=== PATIENT | male | born 1950 | race Caucasian/White ===

== ENCOUNTER 2016-10-04 14:28 | Emergency (ER) | payer BC, MEDICARE, OTHER ==
--- NOTE | 2016-10-04 14:33 | EDM.PDOC ---
ED HPI GENERAL MEDICAL PROBLEM - General Chief Complaint: Neurological Problem Stated Complaint: IN BY AMBULANCE Time Seen by Provider: 10/04/16 14:32 Source of Information: Reports: Patient, Family (), Old Records, RN, RN Notes Reviewed History Limitations: Reports: Altered Mental Status - History of Present Illness INITIAL COMMENTS - FREE TEXT/NARRATIVE: Arrives from home by ambulance with reporting that he was out of town yesterday and returned home today after a fishing trip. He came home and laid down to rest, then the found him to be weak, drowsy, and confused. She checked his medication and states that it appears he took everything except for one dose, she just can't tell if the missed dose was today or yesterday. The pt is not able to provide any reliable history. Pt has Hx of hepatic encephalopathy , alcohol abuse, aspiration pneumonia, CHF, and pulm. HTN. states that when she first got home pt took some medicine and choked on it and coughed, then 2 pills "shot out" of his nose. Unknown if any fever or chills, but none that the has been aware of. Onset: Unknown/Unsure Duration: Constant Location: Reports: Generalized Severity: Severe Improves with: Reports: None Worsens with: Reports: None Context: Denies: Activity, Exercise, Lifting, Sick Contact, Trauma - Related Data Allergies Allergy/AdvReac Type Severity Reaction Status Date / Time duloxetine HCl Allergy Nausea Verified 01/26/16 13:34 [From Cymbalta] phenylbutazone Allergy Edema Verified 01/26/16 13:34 [From Butazolidin] Home Meds: Home Meds Finasteride [Proscar] 5 mg PO DAILY 08/10/15 [History] Insulin Glarg,Human.Rec.Analog [LantUS Solostar] 25 units SQ DAILY 08/10/15 [ History] Pregabalin [Lyrica] 300 mg PO BID 08/10/15 [History] Tamsulosin [Flomax] 0.4 mg PO DAILY 08/10/15 [History] glipiZIDE [Glipizide] 5 mg PO DAILY 08/10/15 [History] metFORMIN [Glucophage XR] 500 mg PO BIDMEALS 08/10/15 [History] Bumetanide 2 mg PO BID #0 01/27/16 [Rx] Spironolactone [Aldactone] 100 mg PO DAILY tablet 01/27/16 [Rx] Past Medical History HEENT History: Reports: Impaired Vision Cardiovascular History: Reports: Hypertension, PVD Respiratory History: Reports: COPD (untreated) Other Respiratory History: pulmonary hypertension Other Gastrointestinal History: hepatitis C, treated Genitourinary History: Reports: BPH Musculoskeletal History: Reports: None Neurological History: Reports: Neuropathy, Diabetic Psychiatric History: Reports: None Endocrine/Metabolic History: Reports: Diabetes, Type II, IDDM Hematologic History: Reports: None Immunologic History: Reports: None Oncologic (Cancer) History: Reports: None Dermatologic History: Reports: None - Infectious Disease History Infectious Disease History: Reports: Hepatitis C - Past Surgical History Respiratory Surgical History: Reports: Other (See Below) Social & Family History - Family History Family Medical History: Noncontributory - Tobacco Use Smoking Status *Q: Current Some Day Smoker Tobacco Use Within Last Twelve Months: Cigarettes Years of Tobacco use: 40 Packs/Tins Daily: 0.5 Used Tobacco, but Quit: Yes Month Tobacco Last Used: 03/05/2010 Second Hand Smoke Exposure: No - Caffeine Use Caffeine Use: Reports: Coffee - Alcohol Use Alcohol Use History: Yes Days Per Week of Alcohol Use: 7 Number of Drinks Per Day: 10 (3-10) Total Drinks Per Week: 70 Alcohol Use Frequency: Binges (long Hx of abuse, "closet drinker", doesn't drink in front of /family.) - Recreational Drug Use Recreational Drug Use: No - Living Situation & Occupation Living situation: Reports: , with Spouse Occupation: Disabled ED ROS GENERAL - Review of Systems Review Of Systems: Unable To Obtain (due to altered mental status) ED EXAM, GENERAL - Physical Exam Exam: See Below Exam Limited By: Altered Mental Status General Appearance: No Apparent Distress, Lethargic (arouses to voice stimuli), Other (chronically ill appearing) Eye Exam: Bilateral Eye: EOMI, PERRL, Other (faint tinge of scleral icterus) Ears: Hearing Grossly Normal Nose: Normal Inspection, Normal Mucosa, No Blood Throat/Mouth: Normal Inspection, Normal Oropharynx, Normal Voice, No Airway Compromise Head: Atraumatic, Normocephalic Neck: Normal Inspection, Supple, Non-Tender, Full Range of Motion Respiratory/Chest: No Respiratory Distress, No Accessory Muscle Use, Decreased Breath Sounds, Crackles Cardiovascular: Regular Rate, Rhythm, No Edema Peripheral Pulses: 0: Posterior Tibial (L), Posterior Tibial (R), 1+: Dorsalis Pedis (L), Dorsalis Pedis (R), 3+: Radial (L), Radial (R) GI/Abdominal: Normal Bowel Sounds, Soft, Non-Tender, No Abnormal Bruit, Other ( obese/protruberant abdomen). No: Guarding, Rigid, Rebound (Male) Exam: Deferred Rectal (Males) Exam: Deferred Back Exam: Normal Inspection Extremities: Normal Range of Motion, Non-Tender, No Pedal Edema, Other (severe chronic venous statis changes) Neurological: Oriented (to person and place), Slow to Respond, Other (slightly confused, follows commands, no obvious motor/sensory deficits.) Skin Exam: Warm, Dry, Intact EKG INTERPRETATION EKG Date: 10/04/16 Time: 15:28 Rhythm: Other (sinus rhythm.) Rate (Beats/Min): 97 [place]: Normal P-Wave: Present (probable left atrial enlargement) QRS: RBBB (and LPFB) ST-T: Depressed (inferior and lateral leads, unchanged from prior.) QT: Normal DE/PQ Interval: prolonged Comparison: No Change (from 02/18/16.) Course - Vital Signs Last Recorded V/S: Last Vital Signs Temp 36.5 C 10/04/16 14:44 Pulse 81 10/04/16 14:44 Resp 20 10/04/16 14:44 BP 100/67 10/04/16 14:44 Pulse Ox 97 10/04/16 14:44 - Orders/Labs/Meds Orders: Active Orders 24 hr Category Date Time Status Blood Glucose Check, Bedside [RC] ONETIME Care 10/04/16 15:19 Active EKG 12 Lead [EKG Documentation Completion] [RC] STAT Care 10/04/16 14:47 Active Peripheral IV Care [RC] . DIRECTED Care 10/04/16 14:49 Active CULTURE BLOOD [BC] Stat Lab 10/04/16 15:05 Received CULTURE BLOOD [BC] Stat Lab 10/04/16 15:56 Received UA W/MICROSCOPIC [URIN] Stat Lab 10/04/16 15:54 Results Sodium Chloride 0.9% [Saline Flush] Med 10/04/16 14:48 Active 10 ml FLUSH ASDIRECTED PRN Blood Culture x2 Reflex Set [OM.PC] Stat Oth 10/04/16 14:48 Ordered Peripheral IV Insertion Adult [OM.PC] Stat Oth 10/04/16 14:47 Ordered Medication Orders Sodium Chloride (Saline Flush) 10 ml FLUSH ASDIRECTED PRN PRN Reason: Keep Vein Open Labs: Laboratory Tests 10/04/16 10/04/16 10/04/16 Range/Units 14:45 15:05 15:05 WBC 10.3 H (5.0-10.0) 10^3/uL RBC 5.37 (4.6-6.2) 10^6/uL Hgb 16.0 (14.0-18.0) g/dL Hct 47.8 (40.0-54.0) % MCV 89.0 (80-100) fL MCH 29.8 (27.0-34.0) pg MCHC 33.5 (33.0-35.0) g/dL Plt Count 103 L (150-450) 10^3/uL Neut % (Auto) 92.9 H (42.2-75.2) % Lymph % (Auto) 3.2 L (20.5-50.1) % [place] % (Auto) 3.8 (2-8) % Eos % (Auto) 0.0 L (1.0-3.0) % Baso % (Auto) 0.1 (0.0-1.0) % PT 12.0 (9.0-12.0) SEC INR 1.2 (0.9-1.2) APTT 31.2 (22.0-34.0) SEC ABG pH 7.49 H (7.35-7.45) ABG pCO2 28 L (35-45) mmHg ABG pO2 52 L (70-100) mmHg ABG HCO3 21.3 L (22-26) mmol/L ABG O2 Saturation 90 L (95-100) % ABG Base Excess -1 ((-2)-(+3)) mmol/L O2 Delivery Device Room air Sodium (135-145) mmol/L Potassium (3.6-5.0) mmol/L Chloride (101-111) mmol/L Carbon Dioxide (21.0-31.0) mmol/L Anion Gap BUN (7-18) mg/dL Creatinine (0.6-1.3) mg/dL Est Cr Clr Drug Dosing mL/min Estimated GFR (MDRD) BUN/Creatinine Ratio Glucose (74-105) mg/dL POC Glucose (70-105) mg/dl Lactic Acid (0.5-2.2) mmol/L Calcium (8.4-10.2) mg/dl Total Bilirubin (0.2-1.0) mg/dL AST (10-42) IU/L ALT (10-60) IU/L Alkaline Phosphatase (42-121) IU/L Ammonia (11-35) umol/L Creatine Kinase (26-174) IU/L Troponin I (0.00-0.02) ng/ml B-Natriuretic Peptide (0-100) pg/ml Total Protein (6.7-8.2) g/dl Albumin (3.2-5.5) g/dl Globulin Albumin/Globulin Ratio Amylase (28-100) U/L Lipase (22-51) U/L Urine Color (YELLOW) Urine Appearance (CLEAR) Urine pH (5.0-9.0) Ur Specific [place] (1.005-1.030) Urine Protein (NEGATIVE) Urine Glucose (UA) (NEGATIVE) Urine Ketones (NEGATIVE) Urine Occult Blood (NEGATIVE) Urine Nitrite (NEGATIVE) Urine Bilirubin (NEGATIVE) Urine Urobilinogen (0.2-1.0) mg/dL Ur Leukocyte Esterase (NEGATIVE) Urine Opiates Screen (NEGATIVE) Ur Oxycodone Screen (NEGATIVE) Urine Methadone Screen (NEGATIVE) Ur Barbiturates Screen (NEGATIVE) U Tricyclic Antidepress (NEGATIVE) Ur Phencyclidine Scrn (NEGATIVE) Ur Amphetamine Screen (NEGATIVE) U Methamphetamines Scrn (NEGATIVE) Urine MDMA Screen (NEGATIVE) U Benzodiazepines Scrn (NEGATIVE) Urine Cocaine Screen (NEGATIVE) U Marijuana (THC) Screen (NEGATIVE) Ethyl Alcohol mg/dL 10/04/16 10/04/16 10/04/16 Range/Units 15:05 15:05 15:05 WBC (5.0-10.0) 10^3/uL RBC (4.6-6.2) 10^6/uL Hgb (14.0-18.0) g/dL Hct (40.0-54.0) % MCV (80-100) fL MCH (27.0-34.0) pg MCHC (33.0-35.0) g/dL Plt Count (150-450) 10^3/uL Neut % (Auto) (42.2-75.2) % Lymph % (Auto) (20.5-50.1) % [place] % (Auto) (2-8) % Eos % (Auto) (1.0-3.0) % Baso % (Auto) (0.0-1.0) % PT (9.0-12.0) SEC INR (0.9-1.2) APTT (22.0-34.0) SEC ABG pH (7.35-7.45) ABG pCO2 (35-45) mmHg ABG pO2 (70-100) mmHg ABG HCO3 (22-26) mmol/L ABG O2 Saturation (95-100) % ABG Base Excess ((-2)-(+3)) mmol/L O2 Delivery Device Sodium 129 L (135-145) mmol/L Potassium 4.9 (3.6-5.0) mmol/L Chloride 93 L (101-111) mmol/L Carbon Dioxide 23.0 (21.0-31.0) mmol/L Anion Gap 17.9 BUN 33 H (7-18) mg/dL Creatinine 1.4 H (0.6-1.3) mg/dL Est Cr Clr Drug Dosing 59.45 mL/min Estimated GFR (MDRD) 51 BUN/Creatinine Ratio 23.57 Glucose 159 H (74-105) mg/dL POC Glucose (70-105) mg/dl Lactic Acid 1.7 (0.5-2.2) mmol/L Calcium 9.4 (8.4-10.2) mg/dl Total Bilirubin 1.8 H (0.2-1.0) mg/dL AST 30 (10-42) IU/L ALT 19 (10-60) IU/L Alkaline Phosphatase 94 (42-121) IU/L Ammonia 2 L (11-35) umol/L Creatine Kinase 72 (26-174) IU/L Troponin I 0.05 H* (0.00-0.02) ng/ml B-Natriuretic Peptide 736 H (0-100) pg/ml Total Protein 8.8 H (6.7-8.2) g/dl Albumin 4.1 (3.2-5.5) g/dl Globulin 4.7 Albumin/Globulin Ratio 0.87 Amylase 31 (28-100) U/L Lipase 22 (22-51) U/L Urine Color (YELLOW) Urine Appearance (CLEAR) Urine pH (5.0-9.0) Ur Specific [place] (1.005-1.030) Urine Protein (NEGATIVE) Urine Glucose (UA) (NEGATIVE) Urine Ketones (NEGATIVE) Urine Occult Blood (NEGATIVE) Urine Nitrite (NEGATIVE) Urine Bilirubin (NEGATIVE) Urine Urobilinogen (0.2-1.0) mg/dL Ur Leukocyte Esterase (NEGATIVE) Urine Opiates Screen (NEGATIVE) Ur Oxycodone Screen (NEGATIVE) Urine Methadone Screen (NEGATIVE) Ur Barbiturates Screen (NEGATIVE) U Tricyclic Antidepress (NEGATIVE) Ur Phencyclidine Scrn (NEGATIVE) Ur Amphetamine Screen (NEGATIVE) U Methamphetamines Scrn (NEGATIVE) Urine MDMA Screen (NEGATIVE) U Benzodiazepines Scrn (NEGATIVE) Urine Cocaine Screen (NEGATIVE) U Marijuana (THC) Screen (NEGATIVE) Ethyl Alcohol < 5 mg/dL 10/04/16 10/04/16 10/04/16 Range/Units 15:31 15:54 15:54 WBC (5.0-10.0) 10^3/uL RBC (4.6-6.2) 10^6/uL Hgb (14.0-18.0) g/dL Hct (40.0-54.0) % MCV (80-100) fL MCH (27.0-34.0) pg MCHC (33.0-35.0) g/dL Plt Count (150-450) 10^3/uL Neut % (Auto) (42.2-75.2) % Lymph % (Auto) (20.5-50.1) % [place] % (Auto) (2-8) % Eos % (Auto) (1.0-3.0) % Baso % (Auto) (0.0-1.0) % PT (9.0-12.0) SEC INR (0.9-1.2) APTT (22.0-34.0) SEC ABG pH (7.35-7.45) ABG pCO2 (35-45) mmHg ABG pO2 (70-100) mmHg ABG HCO3 (22-26) mmol/L ABG O2 Saturation (95-100) % ABG Base Excess ((-2)-(+3)) mmol/L O2 Delivery Device Sodium (135-145) mmol/L Potassium (3.6-5.0) mmol/L Chloride (101-111) mmol/L Carbon Dioxide (21.0-31.0) mmol/L Anion Gap BUN (7-18) mg/dL Creatinine (0.6-1.3) mg/dL Est Cr Clr Drug Dosing mL/min Estimated GFR (MDRD) BUN/Creatinine Ratio Glucose (74-105) mg/dL POC Glucose 161 H (70-105) mg/dl Lactic Acid (0.5-2.2) mmol/L Calcium (8.4-10.2) mg/dl Total Bilirubin (0.2-1.0) mg/dL AST (10-42) IU/L ALT (10-60) IU/L Alkaline Phosphatase (42-121) IU/L Ammonia (11-35) umol/L Creatine Kinase (26-174) IU/L Troponin I (0.00-0.02) ng/ml B-Natriuretic Peptide (0-100) pg/ml Total Protein (6.7-8.2) g/dl Albumin (3.2-5.5) g/dl Globulin Albumin/Globulin Ratio Amylase (28-100) U/L Lipase (22-51) U/L Urine Color Dark yellow (YELLOW) Urine Appearance Slightly cloudy (CLEAR) Urine pH 5.0 (5.0-9.0) Ur Specific [place] 1.010 (1.005-1.030) Urine Protein Trace H (NEGATIVE) Urine Glucose (UA) Negative (NEGATIVE) Urine Ketones Negative (NEGATIVE) Urine Occult Blood Moderate H (NEGATIVE) Urine Nitrite Positive H (NEGATIVE) Urine Bilirubin Negative (NEGATIVE) Urine Urobilinogen 0.2 (0.2-1.0) mg/dL Ur Leukocyte Esterase Moderate H (NEGATIVE) Urine Opiates Screen Negative (NEGATIVE) Ur Oxycodone Screen Positive H (NEGATIVE) Urine Methadone Screen Negative (NEGATIVE) Ur Barbiturates Screen Negative (NEGATIVE) U Tricyclic Antidepress Negative (NEGATIVE) Ur Phencyclidine Scrn Negative (NEGATIVE) Ur Amphetamine Screen Negative (NEGATIVE) U Methamphetamines Scrn Negative (NEGATIVE) Urine MDMA Screen Negative (NEGATIVE) U Benzodiazepines Scrn Positive H (NEGATIVE) Urine Cocaine Screen Negative (NEGATIVE) U Marijuana (THC) Screen Negative (NEGATIVE) Ethyl Alcohol mg/dL Meds: Medications Generic Name Dose Route Start Last Admin Trade Name Chetan PRN Reason Stop Dose Admin Sodium Chloride 10 ml 10/04/16 14:48 Saline Flush FLUSH ASDIRECTED PRN Keep Vein Open - Radiology Interpretation Free Text/Narrative:: Chest x-ray: Per rad report reveals no lunar mass, hilar lymphadenopathy or focal lobar pneumonia. No atelectasis/collapse. No pneumothorax. Cardiomegaly and generalized pulmonary venous congestion/cephalization with subtle blunting of the costophrenic sulcus. Head CT: Per rad report reveals chronic multi-infarct ischemic disease noted on previous exam February 18, 2016. No new signs of intracranial mass, hydrocephalus or bleed. Sinusitis. Departure - Departure Time of Disposition: 16:10 (Dr. Herrera) Disposition: Refer to Observation Condition: Serious Clinical Impression: Pulmonary hypertension, Alcoholic liver disease Altered mental status Qualifiers: Altered mental status type: somnolence Qualified Code(s): R40.0 - Somnolence Chronic CHF Qualifiers: Congestive heart failure type: unspecified congestive heart failure type Qualified Code(s): I50.9 - Heart failure, unspecified - Discharge Information - My Orders Last 24 Hours: My Active Orders 10/04/16 14:47 EKG 12 Lead [EKG Documentation Completion] [RC] STAT Peripheral IV Insertion Adult [OM.PC] Stat 10/04/16 14:48 Sodium Chloride 0.9% [Saline Flush] 10 ml FLUSH ASDIRECTED PRN Blood Culture x2 Reflex Set [OM.PC] Stat 10/04/16 14:49 Peripheral IV Care [RC] . DIRECTED 10/04/16 15:05 CULTURE BLOOD [BC] Stat 10/04/16 15:19 Blood Glucose Check, Bedside [RC] ONETIME 10/04/16 15:54 UA W/MICROSCOPIC [URIN] Stat 10/04/16 15:56 CULTURE BLOOD [BC] Stat - Assessment/Plan Last 24 Hours: My Active Orders 10/04/16 14:47 EKG 12 Lead [EKG Documentation Completion] [RC] STAT Peripheral IV Insertion Adult [OM.PC] Stat 10/04/16 14:48 Sodium Chloride 0.9% [Saline Flush] 10 ml FLUSH ASDIRECTED PRN Blood Culture x2 Reflex Set [OM.PC] Stat 10/04/16 14:49 Peripheral IV Care [] . DIRECTED 10/04/16 15:05 CULTURE BLOOD [] Stat 10/04/16 15:19 Blood Glucose Check, Bedside [] ONETIME 10/04/16 15:54 UA W/MICROSCOPIC [URIN] Stat 10/04/16 15:56 CULTURE BLOOD [] Stat
[2016-10-04] MEDS ORDERED: Sodium Chloride 0.9% 10 ML Syringe FLUSH PRN (14:48)
[2016-10-04 15:12] LABS: O2 DELIVERY DEVICE ROOM AIR
[2016-10-04 15:14] LABS: BASE EXCESS ARTERIAL -1 mmol/L ((-2)-(+3)); BICARBONATE,ARTERIAL 21.3 mmol/L (22-26); O2 SATURATION ARTERIAL 90 % (95-100); PCO2 ARTERIAL 28 mmHg (35-45); PO2 ARTERIAL 52 mmHg (70-100)
--- NOTE | 2016-10-04 15:30 | CR ---
Clinical history: 66-year-old male clinically suspected "aspiration". Interpretation: Left supra clavicular central venous line crosses the midline with the tip lying in the superior vena cava. Cardiomegaly and generalized pulmonary venous congestion/cephalization with subtle blunting of the c ostophrenic sulci. BNP? EKG? Clinical heart failure? No lung mass, hilar lymphadenopathy or focal lobar pneumonia. No atelectasis/collapse. No pneumothorax.
--- NOTE | 2016-10-04 15:39 | CT ---
Clinical history: 66-year-old 188 pound diabetic male altered mental status reported on CT scan 16 D ec 2016 have "questionable small infarct right occipital lobe". Scan technique: Volume acquisition of data emergency unenhanced CT scan of the head and brain obtain ed while the patient was lying supine on the Siemens multislice CT scanner [place], [place]. All data archived in the PACS system for storage, reformatting and study (fermin ne/brain windows). Interpretation: 1. Uniformly thick bony calvarium and symmetric clear pneumatization of the frontal, sphenoid and ma stoid sinuses (mucoperiosteal thickening of the ethmoid and maxillary sinuses, bilaterally). 2. Symmetric but severe cerebral cortical atrophy with underlying mirror-image prominence of the anup tricular system unchanged since previous exam 18 February 2016. 3. Extensive ischemic change (infarcts) involving the periventricular white matter both cerebral hem ispheres that was also present on earlier exam. Note: Encephalomalacia involving the occipital lobe posteriorly right cerebral hemisphere. 4. No new evidence of supratentorial/posterior fossa mass lesion or hydrocephalus. 5. No abnormal extracerebral/intracranial epidural or subdural hematoma. 6. No sign of acute intracerebral/intraventricular or subarachnoid bleed. CONCLUSION: Chronic multi-infarct ischemic disease noted on previous exam 18 February 2016 (unchange d). No new signs of intracranial mass, hydrocephalus or bleed. Sinusitis.
[2016-10-04 15:40] LABS: CHLORIDE,CL 93 mmol/L (101-111); SODIUM,NA 129 mmol/L (135-145)
[2016-10-04 16:34] VITALS: BP 115/63
--- NOTE | 2016-10-10 10:08 | EKG ---
10/04/2016- IRVING GALLOWAY - EKG per my reading shows sinus rhythm with diffuse inferolateral T-wave inversion. MOD /[id number]
== END 2016-10-04 17:26 ==
LOC: DL.ED 14:28 → UNDOADMOB 16:04 → DL.MS 16:04 → DL.ED 17:26
DX: I27.2 Other secondary pulmonary hypertension (principal); K70.9 Alcoholic liver disease, unspecified; R40.0 Somnolence; I50.9 Heart failure, unspecified; I73.9 Peripheral vascular disease, unspecified; J44.9 Chronic obstructive pulmonary disease, unspecified; E11.40 Type 2 diabetes mellitus with diabetic neuropathy, unspecified; F17.210 Nicotine dependence, cigarettes, uncomplicated; Z79.4 Long term (current) use of insulin; Z79.84 Long term (current) use of oral hypoglycemic drugs; Z79.899 Other long term (current) drug therapy; Z88.8 Allergy status to other drugs, medicaments and biological substances
CPT/HCPCS: 36415; 36600; 70450; 71010; 80053; 80305; 81001; 82140; 82150; 82550; 82803; 82962; 83605; 83690; 83880; 84484; 85025; 85610; 85730; 87040; 93005; 93010; 99285; G0480; 87077; 87186

== ENCOUNTER 2016-11-22 16:58 | Emergency (ER) | payer OTHER, BC ==
[~2016-11-22 16:58] MED LIST: Ondansetron 4 MG/2 ML SDV IV ONE
[2016-11-22 17:05] VITALS: BP 107/68
--- NOTE | 2016-11-22 17:26 | EDM.PDOC ---
ED HPI GENERAL MEDICAL PROBLEM - General Chief Complaint: Neuro Symptoms/Deficits Stated Complaint: COMING BY AMBULANCE, WEAKNESS Time Seen by Provider: 11/22/16 17:00 Source of Information: Reports: Patient, EMS, Family History Limitations: Reports: No Limitations - History of Present Illness INITIAL COMMENTS - FREE TEXT/NARRATIVE: This 66 yo male patient was brought to the ED by [facility] due to increased confusion and reduced mobility. The patient reports he is currently feeling "normal", but his family believes he is more confused and has not been moving around as normal. The patient reports he has not been eating well over the past couple of days. The patient reports his abdomen looks normal. The patient has been having nausea, vomiting and diarrhea over the past 24 hours. The family also reports the patient was not coherent for the whole day until he was told that he was going to the hospital. The patient was transferred from [place] to [facility] about 1 month ago for similar symptoms. After 2 days in [facility] ([place]), the patient was transferred to [facility] for continued evaluation. The patient has a history of Pulmonary HTN, Hepatic Encephalopathy, CHF, Aspiration Pneumonia, ETOH abuse and NIDDM. The patient denies any drug or ETOH use. Onset: Today Duration: Constant, Getting Worse Location: Reports: Generalized Quality: Reports: Other Severity: Moderate Improves with: Reports: None Worsens with: Reports: None Associated Symptoms: Reports: Nausea/Vomiting, Other (diarrhea) - Related Data Allergies Allergy/AdvReac Type Severity Reaction Status Date / Time duloxetine HCl Allergy Nausea Verified 11/22/16 17:11 [From Cymbalta] phenylbutazone Allergy Edema Verified 11/22/16 17:11 [From Butazolidin] Home Meds: Home Meds Finasteride [Proscar] 5 mg PO DAILY 08/10/15 [History] Pregabalin [Lyrica] 300 mg PO BID 08/10/15 [History] Tamsulosin [Flomax] 0.4 mg PO BID 08/10/15 [History] glipiZIDE [Glipizide] 2.5 mg PO BID 08/10/15 [History] metFORMIN [Glucophage XR] 500 mg PO DAILY 08/10/15 [History] Bumetanide 2 mg PO BID #0 01/27/16 [Rx] Allopurinol [Zyloprim] 100 mg PO DAILY 10/04/16 [History] Ascorbic Acid [Vitamin C] 100 mg PO DAILY 10/04/16 [History] Folic Acid 1 mg PO DAILY 10/04/16 [History] Pantoprazole Sodium [Protonix] 40 mg PO DAILY 10/04/16 [History] Potassium Chloride [Klor-Con] 20 meq PO DAILY 10/04/16 [History] Riociguat [Adempas] 0.5 mg 10/04/16 [History] Spironolactone [Aldactone] 25 mg PO TID 10/04/16 [History] Temazepam 30 mg PO BEDTIME 10/04/16 [History] oxyCODONE 5 mg PO BID 10/04/16 [History] Treprostinil Sodium [Remodulin] 2.4 mg IJ 11/22/16 [History] Past Medical History HEENT History: Reports: Impaired Vision Cardiovascular History: Reports: Hypertension, PVD Respiratory History: Reports: COPD (untreated) Other Respiratory History: pulmonary hypertension Other Gastrointestinal History: hepatitis C, treated Genitourinary History: Reports: BPH Musculoskeletal History: Reports: None Neurological History: Reports: Neuropathy, Diabetic Psychiatric History: Reports: None Endocrine/Metabolic History: Reports: Diabetes, Type II, IDDM Hematologic History: Reports: None Immunologic History: Reports: None Oncologic (Cancer) History: Reports: None Dermatologic History: Reports: None - Infectious Disease History Infectious Disease History: Reports: Hepatitis C - Past Surgical History Respiratory Surgical History: Reports: Other (See Below) Social & Family History - Family History Family Medical History: Noncontributory - Tobacco Use Smoking Status *Q: Current Some Day Smoker Years of Tobacco use: 40 Packs/Tins Daily: 0.5 Used Tobacco, but Quit: Yes Month Tobacco Last Used: 03/05/2010 Second Hand Smoke Exposure: No - Caffeine Use Caffeine Use: Reports: Coffee - Alcohol Use Days Per Week of Alcohol Use: 7 Number of Drinks Per Day: 10 (3-10) Total Drinks Per Week: 70 - Recreational Drug Use Recreational Drug Use: No - Living Situation & Occupation Living situation: Reports: , with Spouse Occupation: Disabled ED ROS GENERAL - Review of Systems Review Of Systems: ROS reveals no pertinent complaints other than HPI. ED EXAM, NEURO - Physical Exam Exam: See Below Exam Limited By: No Limitations General Appearance: Alert, WD/WN, Moderate Distress Eye Exam: Bilateral Eye: EOMI, Normal Inspection, PERRL Ears: Normal External Exam, Normal Canal, Hearing Grossly Normal, Normal TMs Nose: Normal Inspection, Normal Mucosa, No Blood Throat/Mouth: Normal Inspection, Normal Lips, Normal Teeth, Normal Gums, Normal Oropharynx, Normal Voice, No Airway Compromise Head Exam: Atraumatic, Normocephalic Neck: Normal Inspection, Supple, Non-Tender, Full Range of Motion Respiratory/Chest: No Respiratory Distress, Lungs Clear, Normal Breath Sounds, No Accessory Muscle Use, Chest Non-Tender Cardiovascular: Normal Peripheral Pulses, Regular Rate, Rhythm, No Edema, No Gallop, No JVD, No Murmur, No Rub GI/Abdominal: Normal Bowel Sounds, Non-Tender, Distended (Male) Exam: Deferred Rectal (Males) Exam: Deferred Neurological: Alert, Normal Mood/Affect, Normal Dorsiflexion, CN II-XII Intact, Normal Plantar Flexion, Normal Gait, Normal Reflexes, No Motor/Sensory Deficits , Oriented x 3 Back Exam: Normal Inspection Extremities: Normal Inspection, Normal Range of Motion, Non-Tender, No Pedal Edema, Normal Capillary Refill Psychiatric: Normal Affect, Normal Mood Skin Exam: Warm, Dry, Intact, Normal Color, No Rash Course - Vital Signs Last Recorded V/S: Last Vital Signs Temp 36.8 C 11/22/16 17:00 Pulse 91 11/22/16 17:00 Resp 20 11/22/16 17:00 BP 107/68 11/22/16 17:00 Pulse Ox 96 11/22/16 17:00 - Orders/Labs/Meds Orders: Active Orders 24 hr Category Date Time Status EKG Documentation Completion [RC] URGENT Care 11/22/16 16:40 Active CULTURE BLOOD [BC] Stat Lab 11/22/16 17:00 Received CULTURE BLOOD [BC] Stat Lab 11/22/16 17:23 Received DRUG SCREEN URINE BIORAD [URCHEM] Stat Lab 11/22/16 17:44 Ordered UA W/MICROSCOPIC [URIN] Stat Lab 11/22/16 17:44 Ordered Blood Culture x2 Reflex Set [OM.PC] Stat Oth 11/22/16 16:41 Ordered Labs: Laboratory Tests 11/22/16 11/22/16 11/22/16 Range/Units 17:00 17:00 17:00 WBC 6.5 (5.0-10.0) 10^3/uL RBC 5.54 (4.6-6.2) 10^6/uL Hgb 16.4 (14.0-18.0) g/dL Hct 48.9 (40.0-54.0) % MCV 88.3 (80-100) fL MCH 29.6 (27.0-34.0) pg MCHC 33.5 (33.0-35.0) g/dL Plt Count 163 (150-450) 10^3/uL Neut % (Auto) 79.9 H (42.2-75.2) % Lymph % (Auto) 8.3 L (20.5-50.1) % [place] % (Auto) 11.4 H (2-8) % Eos % (Auto) 0.2 L (1.0-3.0) % Baso % (Auto) 0.2 (0.0-1.0) % Sodium 133 L (135-145) mmol/L Potassium 4.4 (3.6-5.0) mmol/L Chloride 93 L (101-111) mmol/L Carbon Dioxide 23.0 (21.0-31.0) mmol/L Anion Gap 21.4 BUN 50 H (7-18) mg/dL Creatinine 2.3 H (0.6-1.3) mg/dL Est Cr Clr Drug Dosing 36.19 mL/min Estimated GFR (MDRD) 29 BUN/Creatinine Ratio 21.73 Glucose 222 H (74-105) mg/dL Lactic Acid (0.5-2.2) mmol/L Calcium 9.3 (8.4-10.2) mg/dl Magnesium 1.5 L (1.8-2.5) mg/dL Total Bilirubin 1.5 H (0.2-1.0) mg/dL AST 38 (10-42) IU/L ALT 20 (10-60) IU/L Alkaline Phosphatase 94 (42-121) IU/L Ammonia 2 L (11-35) umol/L Troponin I 0.04 H* (0.00-0.02) ng/ml B-Natriuretic Peptide 236 H (0-100) pg/ml Total Protein 9.2 H (6.7-8.2) g/dl Albumin 4.2 (3.2-5.5) g/dl Globulin 5.0 Albumin/Globulin Ratio 0.84 Ethyl Alcohol < 5 mg/dL 11/22/16 Range/Units 17:00 WBC (5.0-10.0) 10^3/uL RBC (4.6-6.2) 10^6/uL Hgb (14.0-18.0) g/dL Hct (40.0-54.0) % MCV (80-100) fL MCH (27.0-34.0) pg MCHC (33.0-35.0) g/dL Plt Count (150-450) 10^3/uL Neut % (Auto) (42.2-75.2) % Lymph % (Auto) (20.5-50.1) % [place] % (Auto) (2-8) % Eos % (Auto) (1.0-3.0) % Baso % (Auto) (0.0-1.0) % Sodium (135-145) mmol/L Potassium (3.6-5.0) mmol/L Chloride (101-111) mmol/L Carbon Dioxide (21.0-31.0) mmol/L Anion Gap BUN (7-18) mg/dL Creatinine (0.6-1.3) mg/dL Est Cr Clr Drug Dosing mL/min Estimated GFR (MDRD) BUN/Creatinine Ratio Glucose (74-105) mg/dL Lactic Acid 2.9 H (0.5-2.2) mmol/L Calcium (8.4-10.2) mg/dl Magnesium (1.8-2.5) mg/dL Total Bilirubin (0.2-1.0) mg/dL AST (10-42) IU/L ALT (10-60) IU/L Alkaline Phosphatase (42-121) IU/L Ammonia (11-35) umol/L Troponin I (0.00-0.02) ng/ml B-Natriuretic Peptide (0-100) pg/ml Total Protein (6.7-8.2) g/dl Albumin (3.2-5.5) g/dl Globulin Albumin/Globulin Ratio Ethyl Alcohol mg/dL Meds: Medications Discontinued Medications Generic Name Dose Route Start Last Admin Trade Name Freq PRN Reason Stop Dose Admin Ondansetron HCl 4 mg 11/22/16 16:55 11/22/16 17:00 Zofran IV 11/22/16 16:56 4 mg ONETIME ONE Administration - Re-Assessments/Exams Free Text/Narrative Re-Assessment/Exam: 11/22/16 17:48 The patient was advised of the examination, EKG and CT results during the visit. The patient was given a 500 mL bolus of normal saline and IV Zofran while in the ED. Departure - Departure Time of Disposition: 17:59 Disposition: Home, Self-Care 01 Condition: Fair Clinical Impression: Gastroenteritis - Discharge Information Instructions: Gastritis, Adult, [id number] Forms: ED Department Discharge Care Plan Goals: The patient and family were advised of the examination, lab, EKG and CT results during the visit. The patient was given a saline bolus and a dose of IV Zofran while in the ED. The patient was discharged with a script for Zofran (4 mg) #20 to take 1 by mouth every 6 hours as needed for nausea. If the patient has any additional symptoms or further concerns, the patient should follow-up with his primary care facility or return to the emergency department. - My Orders Last 24 Hours: My Active Orders 11/22/16 16:40 EKG Documentation Completion [RC] URGENT 11/22/16 16:41 Blood Culture x2 Reflex Set [OM.PC] Stat 11/22/16 17:00 CULTURE BLOOD [BC] Stat 11/22/16 17:23 CULTURE BLOOD [BC] Stat 11/22/16 17:44 DRUG SCREEN URINE BIORAD [URCHEM] Stat UA W/MICROSCOPIC [URIN] Stat - Assessment/Plan Last 24 Hours: My Active Orders 11/22/16 16:40 EKG Documentation Completion [RC] URGENT 11/22/16 16:41 Blood Culture x2 Reflex Set [OM.PC] Stat 11/22/16 17:00 CULTURE BLOOD [BC] Stat 11/22/16 17:23 CULTURE BLOOD [BC] Stat 11/22/16 17:44 DRUG SCREEN URINE BIORAD [URCHEM] Stat UA W/MICROSCOPIC [URIN] Stat
[2016-11-22 17:28] LABS: CHLORIDE,CL 93 mmol/L (101-111); SODIUM,NA 133 mmol/L (135-145)
--- NOTE | 2016-11-23 14:22 | EKG ---
11/22/2016 - IRVING GALLOWAY I reviewed the EKG and agree with the machine's reading. [facility] /[id number]
== END 2016-11-22 18:50 | disposition home or self-care (01) ==
LOC: DL.ED 16:58
DX: K52.9 Noninfective gastroenteritis and colitis, unspecified (principal); I10 Essential (primary) hypertension; E11.40 Type 2 diabetes mellitus with diabetic neuropathy, unspecified; J44.9 Chronic obstructive pulmonary disease, unspecified; F17.210 Nicotine dependence, cigarettes, uncomplicated; Z88.8 Allergy status to other drugs, medicaments and biological substances
CPT/HCPCS: 36415; 70450; 80053; 80305; 81001; 82140; 83605; 83735; 83880; 84484; 85025; 87040; 93005; 93010; 96374; 99285; G0480; J2405

== ENCOUNTER 2017-08-26 20:24 | Emergency (ER) | payer OTHER, BC ==
[2017-08-26 21:07] LABS: CHLORIDE,CL 85 mmol/L (101-111); SODIUM,NA 123 mmol/L (135-145)
--- NOTE | 2017-08-26 21:12 | EDM.PDOC ---
ED HPI GENERAL MEDICAL PROBLEM - General Chief Complaint: Respiratory Problem Time Seen by Provider: 08/26/17 21:08 Source of Information: Reports: Patient, Family History Limitations: Reports: No Limitations - History of Present Illness INITIAL COMMENTS - FREE TEXT/NARRATIVE: c/o progressive worsening sob past 3 days chest tightness leg swelling weakness. h/o abd tap for ascites last on few weeks ago [facility] [place] [facility] color [facility] is at. Bilateral Feet Pain Score (Numeric/FACES): 6 Abdomen Pain Score (Numeric/FACES): 6 - Related Data Allergies Allergy/AdvReac Type Severity Reaction Status Date / Time duloxetine HCl Allergy Nausea Verified 11/23/16 15:55 MDT [From Cymbalta] phenylbutazone Allergy Edema Verified 11/23/16 15:55 MDT [From Butazolidin] Home Meds: Home Meds Finasteride [Proscar] 5 mg PO DAILY 08/10/15 [History] Pregabalin [Lyrica] 300 mg PO BID 08/10/15 [History] Tamsulosin [Flomax] 0.4 mg PO BID 08/10/15 [History] glipiZIDE [Glipizide] 5 mg PO BID 08/10/15 [History] Allopurinol [Zyloprim] 100 mg PO BID 10/04/16 [History] Folic Acid 1 mg PO DAILY 10/04/16 [History] Pantoprazole Sodium [Protonix] 40 mg PO DAILY 10/04/16 [History] Potassium Chloride [Klor-Con] 40 meq PO DAILY 10/04/16 [History] Riociguat [Adempas] 1.5 mg PO TID 10/04/16 [History] Spironolactone [Aldactone] 50 mg PO BID 10/04/16 [History] Temazepam 30 mg PO BEDTIME 10/04/16 [History] oxyCODONE 5 mg PO Q4H PRN 10/04/16 [History] Treprostinil Sodium [Remodulin] 77.5 ng ICATH DAILY 11/22/16 [History] Albuterol/Ipratropium [DuoNeb 3.0-0.5 MG/3 ML] 1 ampule INH Q6H PRN 08/26/17 [ History] Budesonide/Formoterol Fumarate [Symbicort 160-4.5 Mcg Inhaler] 2 puff IH BID [History] Bumetanide 4 mg PO BID 08/26/17 [History] Docusate Sodium [Colace] 100 mg PO DAILY 08/26/17 [History] Lactulose 15 ml PO DAILY 08/26/17 [History] Magnesium Oxide 800 mg PO DAILY 08/26/17 [History] Metolazone 5 mg PO DAILY 08/26/17 [History] Past Medical History HEENT History: Reports: Impaired Vision Cardiovascular History: Reports: Hypertension, Pulmonary Hypertension, PVD Respiratory History: Reports: COPD Other Respiratory History: pulmonary hypertension Gastrointestinal History: Reports: Other (See Below) Other Gastrointestinal History: hepatitis C, treated Genitourinary History: Reports: BPH Musculoskeletal History: Reports: None Neurological History: Reports: Neuropathy, Diabetic Other Neuro History: 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 Psychiatric History: Reports: None Endocrine/Metabolic History: Reports: Diabetes, Type II, IDDM Hematologic History: Reports: None Immunologic History: Reports: None Oncologic (Cancer) History: Reports: None Dermatologic History: Reports: None - Infectious Disease History Infectious Disease History: Reports: Hepatitis C - Past Surgical History Head Surgeries/Procedures: Reports: None Respiratory Surgical History: Reports: Other (See Below) Social & Family History - Family History Family Medical History: Noncontributory - Caffeine Use Caffeine Use: Reports: Coffee, Soda - Living Situation & Occupation Living situation: Reports: , with Spouse Occupation: Disabled ED ROS GENERAL - Review of Systems Review Of Systems: ROS reveals no pertinent complaints other than HPI. ED EXAM, GENERAL - Physical Exam Exam: See Below Exam Limited By: No Limitations General Appearance: Alert, WD/WN, Mild Distress, Other (sob) Ears: Hearing Grossly Normal Throat/Mouth: Normal Voice, No Airway Compromise Head: Atraumatic Neck: Non-Tender, Full Range of Motion Respiratory/Chest: No Accessory Muscle Use, Decreased Breath Sounds, Rhonchi. No: Retractions Cardiovascular: Regular Rate, Rhythm GI/Abdominal: Distended, Other (ascites) Extremities: Pedal Edema, Other (3+ bilateral) Neurological: Alert, Oriented, Normal Cognition, No Motor/Sensory Deficits Psychiatric: Flat Affect Course - Vital Signs Last Recorded V/S: Last Vital Signs Temp 37.2 C 08/26/17 20:28 Pulse 101 H 06/24/18 21:45 Resp 17 08/26/17 21:45 BP 89/66 L 08/26/17 21:45 Pulse Ox 93 L 08/26/17 21:45 - Orders/Labs/Meds Labs: Laboratory Tests 08/26/17 08/26/17 08/26/17 Range/Units 20:40 20:40 20:40 WBC 6.8 (5.0-10.0) 10^3/uL RBC 5.24 (4.6-6.2) 10^6/uL Hgb 14.1 D (14.0-18.0) g/dL Hct 40.9 (40.0-54.0) % MCV 78.1 L D (80-100) fL MCH 26.9 L (27.0-34.0) pg MCHC 34.5 (33.0-35.0) g/dL Plt Count 83 L D (150-450) 10^3/uL Neut % (Auto) 77.8 H (42.2-75.2) % Lymph % (Auto) 12.4 L (20.5-50.1) % [place] % (Auto) 7.8 (2-8) % Eos % (Auto) 1.3 (1.0-3.0) % Baso % (Auto) 0.6 (0.0-1.0) % Add Manual Diff Yes Neutrophils % (Manual) 81 H (42-75) % Lymphocytes % (Manual) 11 L (20-50) % Monocytes % (Manual) 7 (2-8) % Eosinophils % (Manual) 1 (1-3) % Sodium 123 L D (135-145) mmol/L Potassium 4.7 (3.6-5.0) mmol/L Chloride 85 L (101-111) mmol/L Carbon Dioxide 25.0 (21.0-31.0) mmol/L Anion Gap 17.7 BUN 98 H D (7-18) mg/dL Creatinine 3.5 H D (0.6-1.3) mg/dL Est Cr Clr Drug Dosing TNP Estimated GFR (MDRD) 18 BUN/Creatinine Ratio 28.00 Glucose 116 H (74-105) mg/dL Lactic Acid (0.5-2.2) mmol/L Calcium 8.6 (8.4-10.2) mg/dl Total Bilirubin 1.2 H (0.2-1.0) mg/dL AST 23 (10-42) IU/L ALT 15 (10-60) IU/L Alkaline Phosphatase 124 H (42-121) IU/L Ammonia 12 (11-35) umol/L Troponin I (0.00-0.02) ng/ml B-Natriuretic Peptide (0-100) pg/ml Total Protein 7.9 (6.7-8.2) g/dl Albumin 3.6 (3.2-5.5) g/dl Globulin 4.3 Albumin/Globulin Ratio 0.84 08/26/17 08/26/17 Range/Units 20:40 20:40 WBC (5.0-10.0) 10^3/uL RBC (4.6-6.2) 10^6/uL Hgb (14.0-18.0) g/dL Hct (40.0-54.0) % MCV (80-100) fL MCH (27.0-34.0) pg MCHC (33.0-35.0) g/dL Plt Count (150-450) 10^3/uL Neut % (Auto) (42.2-75.2) % Lymph % (Auto) (20.5-50.1) % [place] % (Auto) (2-8) % Eos % (Auto) (1.0-3.0) % Baso % (Auto) (0.0-1.0) % Add Manual Diff Neutrophils % (Manual) (42-75) % Lymphocytes % (Manual) (20-50) % Monocytes % (Manual) (2-8) % Eosinophils % (Manual) (1-3) % Sodium (135-145) mmol/L Potassium (3.6-5.0) mmol/L Chloride (101-111) mmol/L Carbon Dioxide (21.0-31.0) mmol/L Anion Gap BUN (7-18) mg/dL Creatinine (0.6-1.3) mg/dL Est Cr Clr Drug Dosing Estimated GFR (MDRD) BUN/Creatinine Ratio Glucose (74-105) mg/dL Lactic Acid 0.9 (0.5-2.2) mmol/L Calcium (8.4-10.2) mg/dl Total Bilirubin (0.2-1.0) mg/dL AST (10-42) IU/L ALT (10-60) IU/L Alkaline Phosphatase (42-121) IU/L Ammonia (11-35) umol/L Troponin I 0.04 H* (0.00-0.02) ng/ml B-Natriuretic Peptide 200 H (0-100) pg/ml Total Protein (6.7-8.2) g/dl Albumin (3.2-5.5) g/dl Globulin Albumin/Globulin Ratio - Re-Assessments/Exams Free Text/Narrative Re-Assessment/Exam: 08/26/17 22:[address] Hansen @ who kindly accept pt Departure - Departure Time of Disposition: 22:18 Disposition: DC/Tfer to Acute Hospital 02 Condition: Poor Clinical Impression: Ascites due to alcoholic cirrhosis Renal failure Qualifiers: Renal failure chronicity: chronic Chronic kidney disease stage: stage 5, not on chronic dialysis Qualified Code(s): N18.5 - Chronic kidney disease, stage 5 - Discharge Information Forms: Interfacility Transfer [facility]
[2017-08-26 22:26] VITALS: BP 84/54
== END 2017-08-26 22:49 ==
LOC: DL.ED 20:24
DX: K70.31 Alcoholic cirrhosis of liver with ascites (principal); I12.0 Hypertensive chronic kidney disease with stage 5 chronic kidney disease or end stage renal disease; N18.5 Chronic kidney disease, stage 5; E11.22 Type 2 diabetes mellitus with diabetic chronic kidney disease; E11.40 Type 2 diabetes mellitus with diabetic neuropathy, unspecified; J44.9 Chronic obstructive pulmonary disease, unspecified; Z88.8 Allergy status to other drugs, medicaments and biological substances; Z79.899 Other long term (current) drug therapy
CPT/HCPCS: 36415; 71045; 80053; 82140; 83605; 83880; 84484; 85025; 99285

== ENCOUNTER 2017-09-14 10:05 | Day surgery (SDC) | payer OTHER ==
[2017-09-14] MEDS ORDERED: Lidocaine 1% 30 ML SDV ONE (10:40)
[2017-09-14 10:44] VITALS: BP 81/44
[2017-09-14] MEDS ORDERED: Lidocaine 1% 30 ML SDV INJECT ONE ×2 (11:09→11:12)
--- NOTE | 2017-09-17 08:51 | CN ---
SERVICE DATE: 09/14/2017 INTRODUCTION: This 66-year-old male presents to my Surgery Clinic for evaluation of massive abdominal ascites. He is a [facility] patient here and does travel to [facility] in [place] to have the ascites intermittently tapped. He, however, was just tapped last week and would rather not make this same long trip. I have the ability to drain the ascites here and make him comfortable. He is a palliative care patient and this would be for comfort measures to help him breathe better. The risks, benefits, and expected outcomes of a drainage procedure were discussed with him and he wishes to proceed. PHYSICAL EXAMINATION: Shows a clear heart and lungs. The abdomen is markedly distended and tense and this is due to end-stage liver disease or cirrhosis that causes his ascites. PROCEDURE IN DETAIL: After adequate preparation, the left side of the abdomen was prepped and draped sterilely. A 1% Xylocaine was used to infiltrate an area around the skin and the muscle layer. A Veress needle was placed within the abdomen and then a 5 mm trocar was introduced over the sheath into the abdomen. This was then hooked up to an IV extension tubing and the stopcock was opened. This was able to drain 3 L of ascites looking material. The patient seemed to tolerate this well. He still has at least that much left in the abdomen and I did discuss with him the possibility of a permanent peritoneal dialysis type catheter that would be able to be used intermittently without having to do invasive procedure. He is going to think about having that placed. He has an appointment for that evaluation at [facility] this next week. If he changes his mind and wants it done here, I will do it the week of October 15. Anyway, the trocar was removed and the skin was closed using a running 4-0 nylon, so that he will not have leakage problems through the skin incision. His ascites will recur. [facility] /[id number] CC: [facility] Yareli Heck [place]
== END 2017-09-14 12:04 | disposition home or self-care (01) ==
LOC: DL.SDS 10:05
PROVIDERS: ATTEND Surgery
DX: R18.8 Other ascites (principal)
CPT/HCPCS: 49082

== ENCOUNTER 2017-09-19 13:53 | Emergency (ER) | payer OTHER, BC ==
[2017-09-19 13:59] VITALS: BP 88/57
[2017-09-19 14:28] LABS: ANION GAP 17.9
--- NOTE | 2017-09-19 14:36 | CR ---
Clinical history: 67-year-old male complaining of shortness of breath. Interpretation: Generalized slight increase venous congestion with cephalization but subtle blunting of the left cost ophrenic angle was present on earlier films 26 August 2017 and 04 October 2016 i.e. unchanged. (Subtle as ymmetric masslike density right upper lobe may represent superimposition of rib shadows) No increase in cardiac size or change in configuration. Right supraclavicular central venous line and external monitor car operator leads. No new lung mass, hilar lymphadenopathy or focal lobar pneumonia. No pneumothorax.
--- NOTE | 2017-09-19 15:03 | EDM.PDOC ---
Scribed by Ryann Cisneros 09/19/17 [id number] for Eulalio Schwartz PA ED HPI GENERAL MEDICAL PROBLEM - General Chief Complaint: General Stated Complaint: BY AMBULANCE Time Seen by Provider: 09/19/17 13:55 Source of Information: Reports: Patient, RN, RN Notes Reviewed History Limitations: Reports: No Limitations - History of Present Illness INITIAL COMMENTS - FREE TEXT/NARRATIVE: Patient is a 61-year-old male who reports confusion, increased shortness of breath and generalized weakness/pain. Patient had a paracentesis by Dr. Savage last September 14. He has had numerous fall today and 02 has been 80 % on 4 liters. Patient and has called the ambulance 3 times today. A request from the [facility] in [place] is to transfer the patient to them for palliative care. Onset: Gradual Duration: Getting Worse Location: Reports: Generalized Severity: Severe Generalized Pain Score (Numeric/FACES): 7 - Related Data Allergies Allergy/AdvReac Type Severity Reaction Status Date / Time No Known Allergies Allergy Verified 09/19/17 14:32 Home Meds: Home Meds Finasteride [Proscar] 5 mg PO DAILY 08/10/15 [History] Pregabalin [Lyrica] 300 mg PO BID 08/10/15 [History] Tamsulosin [Flomax] 0.4 mg PO BID 08/10/15 [History] glipiZIDE [Glipizide] 5 mg PO BID 08/10/15 [History] Allopurinol [Zyloprim] 100 mg PO BID 10/04/16 [History] Folic Acid 1 mg PO DAILY 10/04/16 [History] Pantoprazole Sodium [Protonix] 40 mg PO DAILY 10/04/16 [History] Potassium Chloride [Klor-Con] 40 meq PO DAILY 10/04/16 [History] Riociguat [Adempas] 1.5 mg PO TID 10/04/16 [History] Spironolactone [Aldactone] 50 mg PO BID 10/04/16 [History] Temazepam 30 mg PO BEDTIME 10/04/16 [History] oxyCODONE 5 mg PO Q4H PRN 10/04/16 [History] Treprostinil Sodium [Remodulin] 77.5 ng IV ASDIRECTED 11/22/16 [History] Albuterol/Ipratropium [DuoNeb 3.0-0.5 MG/3 ML] 1 ampule INH Q6H PRN 08/26/17 [ History] Budesonide/Formoterol Fumarate [Symbicort 160-4.5 Mcg Inhaler] 2 puff IH BID [History] Bumetanide 4 mg PO BID 08/26/17 [History] Docusate Sodium [Colace] 100 mg PO DAILY 08/26/17 [History] Lactulose 15 ml PO DAILY 08/26/17 [History] Magnesium Oxide 800 mg PO DAILY 08/26/17 [History] metOLazone [Metolazone] 5 mg PO DAILY 08/26/17 [History] Lidocaine 5% 35.44 gm .XX BID PRN 09/19/17 [History] Past Medical History HEENT History: Reports: Impaired Vision Cardiovascular History: Reports: Hypertension, Pulmonary Hypertension, PVD Respiratory History: Reports: COPD Other Respiratory History: pulmonary hypertension Gastrointestinal History: Reports: Cirrhosis, Hepatitis, Other (See Below) Other Gastrointestinal History: hepatitis C, treated, alcoholic cirrhosis of liver with ascites. End stage liver disease. 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 Other Hematologic History: sepsis due to MSSA Immunologic History: Reports: None Oncologic (Cancer) History: Reports: None Dermatologic History: Reports: None - Infectious Disease History Infectious Disease History: Reports: Chicken Pox, Hepatitis C, Measles - Past Surgical History Head Surgeries/Procedures: Reports: None HEENT Surgical History: Reports: None Cardiovascular Surgical History: Reports: None Respiratory Surgical History: Reports: Other (See Below) Other Respiratory Surgeries/Procedures: abscess removal Male Surgical History: Reports: None Neurological Surgical History: Reports: None Musculoskeletal Surgical History: Reports: None Oncologic Surgical History: Reports: None Dermatological Surgical History: Reports: None Social & Family History - Family History Family Medical History: Noncontributory - Caffeine Use Caffeine Use: Reports: Coffee, Soda - Living Situation & Occupation Living situation: Reports: , with Spouse Occupation: Disabled ED ROS GENERAL - Review of Systems Review Of Systems: ROS reveals no pertinent complaints other than HPI. ED EXAM, GENERAL - Physical Exam Exam: See Below Exam Limited By: No Limitations General Appearance: Other (jaundice) Eye Exam: Bilateral Eye: Normal Inspection Ears: Normal External Exam, Normal Canal, Hearing Grossly Normal, Normal TMs Nose: Normal Inspection, Normal Mucosa, No Blood Throat/Mouth: Other (dry) Head: Atraumatic, Normocephalic Neck: Normal Inspection, Supple, Non-Tender, Full Range of Motion Respiratory/Chest: Other (rapid breathing) Cardiovascular: Tachycardia GI/Abdominal: Distended (Male) Exam: Deferred Rectal (Males) Exam: Deferred Back Exam: Normal Inspection, Full Range of Motion, NT Extremities: Normal Inspection, Normal Range of Motion, Non-Tender, Normal Capillary Refill, No Pedal Edema Neurological: Alert, Oriented, CN II-XII Intact, Normal Cognition, Normal Gait, Normal Reflexes, No Motor/Sensory Deficits Psychiatric: Normal Affect, Normal Mood Skin Exam: Warm, Dry, Intact, Normal Color, No Rash Lymphatic: No Adenopathy Course - Vital Signs Last Recorded V/S: Last Vital Signs Temp 37.3 C 09/19/17 13:54 Pulse 127 H 09/19/17 13:54 Resp 22 H 09/19/17 13:54 BP 88/57 L 09/19/17 13:54 Pulse Ox 87 L 09/19/17 13:54 - Orders/Labs/Meds Orders: Active Orders 24 hr Category Date Time Status EKG Documentation Completion [RC] URGENT Care 09/19/17 13:53 Active CULTURE BLOOD [BC] Stat Lab 09/19/17 13:55 Received CULTURE BLOOD [BC] Stat Lab 09/19/17 14:04 Received UA W/MICROSCOPIC [URIN] Stat Lab 09/19/17 13:53 Ordered Blood Culture x2 Reflex Set [OM.PC] Stat Oth 09/19/17 13:53 Ordered Labs: Laboratory Tests 09/19/17 09/19/17 09/19/17 Range/Units 13:43 13:55 13:55 WBC (5.0-10.0) 10^3/uL RBC (4.6-6.2) 10^6/uL Hgb (14.0-18.0) g/dL Hct (40.0-54.0) % MCV (80-100) fL MCH (27.0-34.0) pg MCHC (33.0-35.0) g/dL Plt Count (150-450) 10^3/uL Neut % (Auto) (42.2-75.2) % Lymph % (Auto) (20.5-50.1) % [place] % (Auto) (2-8) % Eos % (Auto) (1.0-3.0) % Baso % (Auto) (0.0-1.0) % Sodium 124 L (135-145) mmol/L Potassium 4.9 (3.6-5.0) mmol/L Chloride 90 L (101-111) mmol/L Carbon Dioxide 21.0 (21.0-31.0) mmol/L Anion Gap 17.9 BUN 105 H (7-18) mg/dL Creatinine 2.6 H (0.6-1.3) mg/dL Est Cr Clr Drug Dosing 31.58 mL/min Estimated GFR (MDRD) 25 BUN/Creatinine Ratio 40.38 Glucose 162 H (74-105) mg/dL Lactic Acid (0.5-2.2) mmol/L Calcium 8.6 (8.4-10.2) mg/dl Total Bilirubin 1.9 H (0.2-1.0) mg/dL AST 30 (10-42) IU/L ALT 15 (10-60) IU/L Alkaline Phosphatase 109 (42-121) IU/L Ammonia 14 (11-35) umol/L Troponin I 0.07 H* (0.00-0.02) ng/ml B-Natriuretic Peptide 967 H (0-100) pg/ml Total Protein 7.0 (6.7-8.2) g/dl Albumin 3.2 (3.2-5.5) g/dl Globulin 3.8 Albumin/Globulin Ratio 0.84 Amylase 34 (28-100) U/L Lipase 37 (22-51) U/L 09/19/17 09/19/17 Range/Units 13:55 13:55 WBC 8.8 (5.0-10.0) 10^3/uL RBC 5.32 (4.6-6.2) 10^6/uL Hgb 13.4 L (14.0-18.0) g/dL Hct 40.7 (40.0-54.0) % MCV 76.5 L (80-100) fL MCH 25.2 L (27.0-34.0) pg MCHC 32.9 L (33.0-35.0) g/dL Plt Count 54 L (150-450) 10^3/uL Neut % (Auto) 86.0 H (42.2-75.2) % Lymph % (Auto) 4.8 L (20.5-50.1) % [place] % (Auto) 9.0 H (2-8) % Eos % (Auto) 0.1 L (1.0-3.0) % Baso % (Auto) 0.1 (0.0-1.0) % Sodium (135-145) mmol/L Potassium (3.6-5.0) mmol/L Chloride (101-111) mmol/L Carbon Dioxide (21.0-31.0) mmol/L Anion Gap BUN (7-18) mg/dL Creatinine (0.6-1.3) mg/dL Est Cr Clr Drug Dosing mL/min Estimated GFR (MDRD) BUN/Creatinine Ratio Glucose (74-105) mg/dL Lactic Acid 1.2 (0.5-2.2) mmol/L Calcium (8.4-10.2) mg/dl Total Bilirubin (0.2-1.0) mg/dL AST (10-42) IU/L ALT (10-60) IU/L Alkaline Phosphatase (42-121) IU/L Ammonia (11-35) umol/L Troponin I (0.00-0.02) ng/ml B-Natriuretic Peptide (0-100) pg/ml Total Protein (6.7-8.2) g/dl Albumin (3.2-5.5) g/dl Globulin Albumin/Globulin Ratio Amylase (28-100) U/L Lipase (22-51) U/L - Re-Assessments/Exams Free Text/Narrative Re-Assessment/Exam: 09/19/17 14:59 Discussed the history, examination and lab results with Dr. Brooks (Hospitalist with the [facility] in [place]). Dr. Brooks advised to call [facility] to have the patient get a paracentesis prior to admission to the [facility]. Departure - Departure Time of Disposition: 15:00 Disposition: DC/Tfer to [facility] 02 Condition: Serious Clinical Impression: CHF, Congestive heart failure Ascites Qualifiers: Ascites type: malignant Qualified Code(s): R18.0 - Malignant ascites Renal failure Qualifiers: Renal failure chronicity: chronic Chronic kidney disease stage: unspecified stage Qualified Code(s): N18.9 - Chronic kidney disease, unspecified - Discharge Information *PRESCRIPTION DRUG MONITORING PROGRAM REVIEWED*: Not Applicable *COPY OF PRESCRIPTION DRUG MONITORING REPORT IN PATIENT JESSICA: Not Applicable Forms: Interfacility Transfer EMTALA Care Plan Goals: Discussed the patient's history, lab, x-ray and EKG results with Dr. Solis (ED Provider in the [facility]). Dr. Solis accepted the patient for continued evaluation and further management. The patient will be transported by [facility]. - My Orders Last 24 Hours: My Active Orders 09/19/17 13:53 EKG Documentation Completion [RC] URGENT UA W/MICROSCOPIC [URIN] Stat Blood Culture x2 Reflex Set [OM.PC] Stat 09/19/17 13:55 CULTURE BLOOD [BC] Stat 09/19/17 14:04 CULTURE BLOOD [BC] Stat - Assessment/Plan Last 24 Hours: My Active Orders 09/19/17 13:53 EKG Documentation Completion [RC] URGENT UA W/MICROSCOPIC [URIN] Stat Blood Culture x2 Reflex Set [OM.PC] Stat 09/19/17 13:55 CULTURE BLOOD [BC] Stat 09/19/17 14:04 CULTURE BLOOD [BC] Stat I have read and agree with the documentation that has been completed regarding this visit. By signing this record, I attest that the documentation was completed in my physical presence and is an accurate record of the encounter.
== END 2017-09-19 15:15 ==
LOC: DL.ED 13:53
DX: I12.9 Hypertensive chronic kidney disease with stage 1 through stage 4 chronic kidney disease, or unspecified chronic kidney disease (principal); I50.9 Heart failure, unspecified; N18.9 Chronic kidney disease, unspecified; R18.0 Malignant ascites; E11.22 Type 2 diabetes mellitus with diabetic chronic kidney disease; E11.40 Type 2 diabetes mellitus with diabetic neuropathy, unspecified; J44.9 Chronic obstructive pulmonary disease, unspecified; Z79.84 Long term (current) use of oral hypoglycemic drugs; Z79.899 Other long term (current) drug therapy
CPT/HCPCS: 36415; 71045; 80053; 82140; 82150; 83605; 83690; 83880; 84484; 85025; 87040; 93005; 93010; 99284; 99285